=== PATIENT | male | born 1985 | race African-American/Black ===

== ENCOUNTER 2024-12-31 16:01 | Emergency (ER) | payer MEDICAID ==
[~2024-12-31] VITALS: Ht 180.3 cm; Wt 111.4 kg
[2024-12-31 16:05] VITALS: BP 145/94; PULSE 65; RESP 18; TEMP 97.9; O2SAT 98
[2024-12-31 17:05] LABS: APPEARANCE,URINE CLEAR (CLEAR); GLUCOSE, URINE (UA) NEGATIVE (NEGATIVE); LEUKOCYTE ESTERASE ,URINE NEGATIVE (NEGATIVE); NITRATE,URINE NEGATIVE (NEGATIVE); OCCULT BLOOD,URINE NEGATIVE (NEGATIVE); SPECIFIC GRAVITIY, URINE 1.012 (1.003-1.030)
[2024-12-31] MEDS: CefTRIAXone SODIUM 1 GM/VIAL IM ONE (17:17)
[2024-12-31] MEDS: LIDOCAINE/PF 1% 2 ML VIAL IM ONE (17:17)
[2024-12-31] MEDS: AZITHROMYCIN 500 MG TABLET PO ONE (17:17)
[2024-12-31 17:18] LABS: SQUAMOUS EPITHELIAL CELL,UR Rare /LPF (None Seen)
[2024-12-31] MEDS ORDERED: DOXY-354 PO (17:41)
== END 2024-12-31 18:06 | disposition home or self-care (01) ==
LOC: EMS 16:01
DX: R30.0 Dysuria (principal); F12.90 Cannabis use, unspecified, uncomplicated
CPT/HCPCS: 99283; 81001; 96372; J0456; J0696; J3490